=== PATIENT | male | born 1980 | race Caucasian/White ===

== ENCOUNTER 2017-03-30 07:11 | Observation (INO) | payer SELFPAY ==
[2017-03-30] VITALS (7 sets, daily range): BP systolic 144–175; BP diastolic 85–99; PULSE 81–103; RESP 16–21; TEMP 97.6–99.4; O2SAT 96–100
[~2017-03-30] VITALS: Ht 188 cm; Wt 113.0 kg
[~2017-03-30 07:11] MED LIST: ALUM5LIQ PO; LISI-357 PO; RANI150 PO
[2017-03-30] MEDS ORDERED: LISI-515 PO (07:49)
[2017-03-30] MEDS ORDERED: IBUPROFEN 800 MG TAB PO ONE (08:00)
[2017-03-30] MEDS ORDERED: SODIUM CHLOR 0.9% 1000 ML INJ 1,000 ML IV ONE (08:00)
--- NOTE | 2017-03-30 08:02 | RADRPT ---
EXAM DATE/TIME: 03/30/2017 07:57 [facility] COMPARISON: No previous studies available for comparison. INDICATIONS : Dyspnea. Coughing up dried blood. MEDICAL HISTORY : None. SURGICAL HISTORY : Clavicle fracture repair. ENCOUNTER: Initial ACUITY: 2 days PAIN SCORE: 0/10 LOCATION: Bilateral chest FINDINGS: A single view of the chest demonstrates the lungs to be symmetrically aerated without evidence of mas s, infiltrate or effusion. There is some prominence of the vascular markings bilaterally. The cardio mediastinal contours are unremarkable. Osseous structures are intact. CONCLUSION: Pulmonary venous congestion. Jose Skinner MD on March 30, 2017 at 8:00 Board Certified Radiologist. This report was verified electronically.
--- NOTE | 2017-03-30 08:36 | PD ---
HPI Chief Complaint: Cold / Flu Symptoms Time Seen by Provider: 07:47 Travel History International Travel<30 days: No Contact w/Intl Traveler<30days: No Traveled to known affect area: No History of Present Illness HPI 37-year-old male who presents today with complaints of cold and cough type symptoms 4 days. Patient also reports fever. He states that he's had cough and congestion over the last 4 days is progressively gotten worse. The patient denies any chest pain, chest pressure. He does report productive cough with blood-tinged phlegm. He has not had the flu immunization. There are no other ill contacts. Patient states that he works in the [id number] business and is been outside in this cold wet weather. PFSH Past Medical History Diminished Hearing: No Hypertension: Yes Tetanus Vaccination: Unknown Influenza Vaccination: No ?: Not Social History Alcohol Use: No Tobacco Use: No Substance Use: No Allergies-Medications (Allergen,Severity, Reaction): Coded Allergies: No Known Allergies (Verified Adverse Reaction, Unknown, 03/30/17) Reported Meds & Prescriptions Reported Meds & Active Scripts Active Reported Lisinopril 20 Mg Tab 20 Mg PO DAILY Review of Systems Except as stated in HPI: all other systems reviewed are Neg General / Constitutional: Positive: Fever, Chills HENT: No: Headaches, Neck Pain Cardiovascular: Positive: Tachycardia, No: Chest Pain or Discomfort, Palpitations Respiratory: Positive: Cough, Shortness of Breath, No: Wheezing Gastrointestinal: Positive: Nausea, Vomiting, No: Abdominal Pain Genitourinary: No: Frequency, Dysuria Musculoskeletal: No: Weakness, Pain Skin: No Rash, No Lesions Neurologic: No: Weakness, Dizziness, Headache Physical Exam Narrative GENERAL: Well-nourished, well-developed patient. SKIN: Focused skin assessment warm/dry. HEAD: Normocephalic/atraumatic. EYES: No scleral icterus. No injection or drainage. NECK: Supple, trachea midline. No JVD or lymphadenopathy. CARDIOVASCULAR: Regular rate and rhythm without murmurs, gallops, or rubs. RESPIRATORY: Coarse rhonchi bilaterally. Questionable Rales at the bases bilaterally. GASTROINTESTINAL: Abdomen soft, non-tender, nondistended. MUSCULOSKELETAL: No cyanosis, or edema. NEUROLOGICAL: Awake and alert. Cranial nerves II through XII intact. Motor grossly within normal limits. Five out of 5 muscle strength in all muscle groups. Normal speech. Data Data Last Documented VS Vital Signs Date Time Temp Pulse Resp B/P (MAP) Pulse Ox O2 Delivery O2 Flow Rate FiO2 03/30/17 07:44 103 15 99 Room Air 03/30/17 07:44 99.1 155/90 (111) Orders Orders Basic Metabolic Panel (Bmp) (03/30/17 07:47) Group A Rapid Strep Screen (03/30/17 07:47) Influenzae A/B Antigen (03/30/17 07:47) Chest, Single Ap (03/30/17 07:47) Ibuprofen (Motrin) (03/30/17 08:00) Sodium Chlor 0.9% 1000 Ml Inj (Ns 1000 M (03/30/17 08:00) Electrocardiogram (03/30/17 08:25) Complete Blood Count With Diff (03/30/17 08:25) Ckmb (Isoenzyme) Profile (03/30/17 08:25) Troponin I (03/30/17 08:25) B-Type Natriuretic Peptide (03/30/17 08:25) Strep Culture (Group A) (03/30/17 08:10) CKMB (03/30/17 08:00) CKMB% (03/30/17 08:00) Labs Laboratory Tests Test 03/30/17 08:00 03/30/17 08:58 Blood Urea Nitrogen 8 MG/DL Creatinine 0.92 MG/DL Random Glucose 98 MG/DL Calcium Level 8.8 MG/DL Sodium Level 131 MEQ/L Potassium Level 4.7 MEQ/L Chloride Level 95 MEQ/L Carbon Dioxide Level 29.6 MEQ/L Anion Gap 6 MEQ/L Estimat Glomerular Filtration Rate 93 ML/MIN Total Creatine Kinase 395 U/L Creatine Kinase MB 7.1 NG/ML Creatine Kinase MB % 1.8 % Troponin I LESS THAN 0.02 NG/ML White Blood Count 6.2 TH/MM3 Red Blood Count 4.94 MIL/MM3 Hemoglobin 15.5 GM/DL Hematocrit 45.1 % Mean Corpuscular Volume 91.3 FL Mean Corpuscular Hemoglobin 31.3 PG Mean Corpuscular Hemoglobin Concent 34.3 % Red Cell Distribution Width 14.2 % Platelet Count 333 TH/MM3 Mean Platelet Volume 7.5 FL Neutrophils (%) (Auto) 77.6 % Lymphocytes (%) (Auto) 9.5 % Monocytes (%) (Auto) 12.0 % Eosinophils (%) (Auto) 0.5 % Basophils (%) (Auto) 0.4 % Neutrophils # (Auto) 4.8 TH/MM3 Lymphocytes # (Auto) 0.6 TH/MM3 Monocytes # (Auto) 0.7 TH/MM3 Eosinophils # (Auto) 0.0 TH/MM3 Basophils # (Auto) 0.0 TH/MM3 CBC Comment DIFF FINAL Differential Comment MDM Medical Decision Making Medical Screen Exam Complete: Yes Emergency Medical Condition: Yes Differential Diagnosis Bronchitis versus pneumonia versus viral influenza Narrative Course 37-year-old male presents today with complaints of cough and cold symptoms times several days. The patient also reports fever. The patient's blood count is within normal limits. Sodium slightly low at 131. X-ray shows what appears to be pulmonary edema. The patient has no cardiac history. The patient's EKG and cardiac enzymes are within normal limits. There is a call out to the admitting service for observation admission. The patient will likely need to get a echocardiogram to rule out cardiac structure abnormality. I discussed with the patient findings and he is agreeable to this. Diagnosis Primary Impression: Pulmonary edema Additional Impressions: URI symptoms mild hyponatremia Admitting Information Admitting Physician Requests: Observation Abram Flores MD Mar 30, 2017 08:36
[2017-03-30 08:43] LABS: BICARBONATE 29.6 MEQ/L (21.0-32.0); CALCIUM 8.8 MG/DL (8.5-10.1); CREATININE 0.92 MG/DL (0.60-1.30)
[2017-03-30 09:19] LABS: TROPONIN I LESS THAN 0.02 NG/ML (0.02-0.05)
[2017-03-30 09:44] LABS: AUTOMATED NEUTROPHIL # 4.8 TH/MM3 (1.8-7.7); BASOPHIL % 0.4 % (0.0-2.0); EOSINOPHIL % 0.5 % (0.0-4.0); HEMATOCRIT 45.1 % (39.0-51.0); HEMOGLOBIN 15.5 GM/DL (13.0-17.0); LYMPH % 9.5 % (9.0-44.0); LYMPHOCYTE # 0.6 TH/MM3 (1.0-4.8); MEAN CELL VOLUME 91.3 FL (80.0-100.0); MEAN CORPUSCULAR HEMOGLOBIN 31.3 PG (27.0-34.0); MEAN CORPUSCULAR HGB CONC 34.3 % (32.0-36.0); MEAN PLATELET VOLUME 7.5 FL (7.0-11.0); MONOCYTE # 0.7 TH/MM3 (0-0.9); NEUT % 77.6 % (16.0-70.0); PLATELET COUNT 333 TH/MM3 (150-450); RED BLOOD COUNT 4.94 MIL/MM3 (4.50-5.90); RED CELL DISTRIBUTION WIDTH 14.2 % (11.6-17.2); WHITE BLOOD COUNT 6.2 TH/MM3 (4.0-11.0)
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
[2017-03-30] MEDS ORDERED: ZOLPIDEM TARTRATE 5 MG TAB PO PRN (12:45)
[2017-03-30] MEDS ORDERED: LORazepam 1 MG TAB PO PRN (12:45)
[2017-03-30] MEDS ORDERED: NALOXONE HCL 0.4 MG/ML AMP IV PUSH PRN ×2 (12:45→15:30)
[2017-03-30] MEDS ORDERED: LISINOPRIL 20 MG TAB PO SCH (12:45)
[2017-03-30] MEDS ORDERED: ACETAMINOPHEN 325 MG TAB PO PRN (12:45)
[2017-03-30] MEDS ORDERED: LORazepam 2 MG/ML VIAL IV PUSH PRN ×4 (12:45)
[2017-03-30] MEDS ORDERED: LACTULOSE SYRUP 20 GM/30 ML CUP PO PRN (12:45)
[2017-03-30] MEDS ORDERED: MAGNESIUM HYDROXIDE SUSP 30 ML CUP PO PRN (12:45)
[2017-03-30] MEDS ORDERED: SENNOSIDES 8.6 MG TAB PO PRN (12:45)
[2017-03-30] MEDS ORDERED: FLUMAZENIL 0.5 MG/5 ML VIAL IV PUSH PRN (12:45)
[2017-03-30] MEDS ORDERED: LORazepam 2 MG TAB PO PRN (12:45)
[2017-03-30] MEDS ORDERED: BISACODYL 10 MG SUPP RECTAL PRN (12:45)
[2017-03-30] MEDS ORDERED: ONDANSETRON HCL 4 MG/2 ML VIAL IVP PRN (12:45)
[2017-03-30] MEDS ORDERED: PANTOPRAZOLE SOD 40 MG DELAYED RELEASE TAB PO SCH (13:30)
[2017-03-30] MEDS ORDERED: traMADol HCL 50 MG TAB PO PRN ×2 (15:30)
[2017-03-30] MEDS ORDERED: IBUPROFEN 400 MG TAB PO PRN (15:30)
[2017-03-30] MEDS ORDERED: ENALAPRILAT 1.25 MG/ML VIAL IV PUSH PRN (15:30)
[2017-03-30 16:59] LABS: ALBUMIN 3.2 GM/DL (3.4-5.0); DIRECT BILIRUBIN ADULT 0.1 MG/DL (0.0-0.2)
[2017-03-30 17:01] LABS: INDIRECT BILIRUBIN 0.4 MG/DL (0.0-0.8); TOTAL BILIRUBIN ADULT 0.5 MG/DL (0.2-1.0); TOTAL PROTEIN 7.5 GM/DL (6.4-8.2)
--- NOTE | 2017-03-30 17:52 | RADRPT ---
EXAM DATE/TIME: 03/30/2017 17:41 [facility] COMPARISON: CHEST SINGLE AP, March 30, 2017, 7:57. INDICATIONS : Congestion. MEDICAL HISTORY : None. SURGICAL HISTORY : Clavicle fracture repair. ENCOUNTER: Subsequent ACUITY: 2 days PAIN SCORE: 0/10 LOCATION: Bilateral chest FINDINGS: PA and lateral views of the chest demonstrate the lungs to be symmetrically aerated without evidence of mass, or effusion. Stable questionable mild prominence of perivascular interstitial without consol idative infiltrates The cardiomediastinal contours are unremarkable. Osseous structures are intact. CONCLUSION: Stable chest Armando Duff MD on March 30, 2017 at 17:47 Board Certified Radiologist. This report was verified electronically.
--- NOTE | 2017-03-30 20:09 | HHI.FPPN ---
Subjective Remarks Attending note patient seen and examined. Please refer to resident note for complete description of past medical history, social history, family history and review of systems. 37-year-old gentleman admitted with a five- day history of acute onset at home of a temperature 102.0 associated with coughing, upper airway congestion, vomiting and upon vomiting some type of thick bloody-like material described by his significant other he presented to the emergency room. No exposure to similar persons with the symptoms. Patient has been maintaining oral hydration and does not report any diarrhea with the present illness. 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 Notable past medical history of hypertension on lisinopril and attending the methadone clinic taking methadone 70 mg per day. Objective Vitals Vital Signs Date Time Temp Pulse Resp B/P (MAP) Pulse Ox O2 Delivery O2 Flow Rate FiO2 03/30/17 17:02 81 03/30/17 15:48 97.6 85 16 144/85 (104) 96 03/30/17 13:58 03/30/17 13:45 85 21 146/94 (111) 100 Room Air 03/30/17 12:37 82 17 147/86 (106) 97 Room Air 03/30/17 10:30 18 03/30/17 07:44 103 15 99 Room Air 03/30/17 07:44 99.1 98 18 155/90 (111) 96 Room Air 03/30/17 07:13 99.4 103 18 175/99 (124) 98 I/O 03/29/17 03/29/17 03/29/17 03/30/17 03/30/17 03/30/17 06:59 14:59 22:59 06:59 14:59 22:59 Intake Total 1000 ml Balance 1000 ml Intake IV Total 1000 ml Result Diagram: 03/30/17 0858 03/30/17 0800 Objective Remarks Vital signs noted. Initially temperature 99.7, blood pressure 175/99 and pulse 103, respirations 20. Gen. appearance: Young gentleman who at the time of examination was intermittently coughing, in no acute distress, significant other at bedside. HEENT: Has cheilitis on the left angle of the mouth, no localized lesions seen in the oropharynx, mildly erythematous soft and hard palate. Neck: Supple, no thyromegaly or adenopathy. Lungs: Large chest configuration, clear breath sounds although volume of breath sounds appears diminished. Cardiac: Regular rhythm, no S3, no pericardial rubs appreciated, no S3 or murmurs appreciated, heart sounds are somewhat distant. Abdomen: Soft and benign, nontender, no masses. Extremities: No edema, warm and dry, circulation intact. Neurologic exam: Grossly normal. Pertinent labs include a creatinine of 0.92, BUN of 8 sodium mildly diminished 131. White count 6200 hemoglobin 15.5, platelets 333,000. BNP 19. Chest x-ray portable in the ER suggestive of increased pulmonary vasculature, question cardiac origin. Follow-up PA and lateral chest x-ray in the department were questionable for some increased bronchial markings, no masses, no effusion, no definite consolidation. A/P Assessment and Plan Clinical assessment 37-year-old gentleman admitted with what clinically appears to be a viral syndrome with severity of symptoms, suspect that blood seen was secondary to forceful coughing and superficial injury of the esophageal or tracheal structures. Elevated blood pressure, being addressed. I have reviewed the case with the resident team, agree with resident team's assessment and plan and orders as written. We'll follow clinically. Hollis Aguilar MD Mar 30, 2017 20:09
[2017-03-30] MEDS ORDERED: DOCUSATE SODIUM 50 MG/SENNA 8.6 MG TAB PO SCH (21:00)
--- NOTE | 2017-03-31 05:07 | PD.AMA ---
Against Medical Advice Note Discharge Disposition: Against Medical Advice Pt Condition on Discharge: Stable AMA Statement Patient Chad Novak has decided to leave the hospital against medical advice. This patient left the ER before a physician was able to discuss the risks of leaving AMA. Nursing staff stated that patient left without having IV removed and authorities were informed. Dio Dobbins MD R1 Mar 31, 2017 05:07
--- NOTE | 2017-03-31 19:20 | EKG ---
Date Performed: 03/30/2017 Time Performed: 09:10:41 PTAGE: 37 years EKG: Sinus rhythm NONSPECIFIC T-WAVE ABNORMALITY When compared to previous tracing, the inferolateral T wave Changes a re new. Clinical corrolation is advised. ABNORMAL ECG PREVIOUS TRACING : 12/13/2012 15.18 DOCTOR: Salome Gaston Interpretating Date/Time 03/31/2017 19:19:06
== END 2017-03-30 23:02 | disposition left against medical advice (07) ==
LOC: NEPE 07:11 → NEDA 10:37 → NEPGCP 13:48
PROVIDERS: ADMIT Family Medicine; ATTEND Family Medicine
DX: I10 Essential (primary) hypertension (principal); J06.9 Acute upper respiratory infection, unspecified; R09.89 Other specified symptoms and signs involving the circulatory and respiratory systems; E87.1 Hypo-osmolality and hyponatremia; R11.10 Vomiting, unspecified; J81.1 Chronic pulmonary edema; R94.31 Abnormal electrocardiogram [ECG] [EKG]; M54.9 Dorsalgia, unspecified; G89.29 Other chronic pain; F19.90 Other psychoactive substance use, unspecified, uncomplicated; Z79.899 Other long term (current) drug therapy
CPT/HCPCS: 71045; 71046; 80048; 80076; 82550; 82552; 83880; 84484; 85025; 85379; 87081; 87804; 87880; 93005; 96360; 96361; 99285; G0378; J7030